=== PATIENT | male | born 1970 | race Caucasian/White ===

== ENCOUNTER → 2018-05-23 15:47 | Outpatient (CLI) | payer OTHER, SELFPAY ==
--- OUTSIDE RECORDS SUMMARY | 2018-07-28 15:32 | XMS RPT_ITS ---
:1970 Author Organization OH[facility] Care Team Providers Name Role Phone Pawan Duval Attending Unavailable Pawan Duval Referring Unavailable Ruddy Duval Primary Care Unavailable PROBLEMS PROBLEMS No Problem Records FoundPROCEDURES PROCEDURES No Procedure Records FoundRESULTS RESULTS Observed: 05/23/2018 Status: F Source: [place] CULTURE, THROAT 9:00 AM [facility] REPOSITORY Culture, Throat #1 Ampicillin can be used for Beta-Lactamase negative isolates. Trimeth/Sulfa, Chloramphenicol, Cefotaxime, Ciprofloxacin, Amoxicillin/Clavulanic Acid,and Oral 2nd/3rd Generation Cephlosporins are effective against both Beta-Lactamase positive and Beta-Lactamase negative isolates. ORGANISM 1: Haemophilus influenzae Amount Growth 3+ Beta Lactamase Negative ORGANISM 2: Mixed Goldie Amount Growth 3+ Performed By: #### [id number] #### [facility] [address] [place], [place], [address] ALLERGIES ALLERGIES No Allergies Records FoundENCOUNTERS ENCOUNTERS ADMIT/DISCHARGE ACCOUNT ADMITTING ENCOUNTER LOCATION SOURCE NUMBER CLASS 05/23/2018 [id number] [facility] ing:LABSPEC Repository PAYERS PAYERS ENCOUNTER GUARANTOR PAYER SUBSCRIBER SOURCE 05/23/2018 JUSTEN Rodriguez [id number] Insurance:Ana NORMANDOB: [facility] icy [place]: [id number] [id number] Repository [address]Gjz: ([phone]) Date:[id number] [phone] () [address], [place] [id number]: 05/23/2018 Secondary NOT GIVENUNK Micheal Insurance:SELF PAY [facility]: Effective Repository Date:2018-05-23
== END ==
PROVIDERS: Family Provider Otolaryngology; PCP Otolaryngology; Referring Provider Otolaryngology Otolaryngology/Facial Plastic Surgery; Visit Provider Otolaryngology Otolaryngology/Facial Plastic Surgery
DX: J02.9 Acute pharyngitis, unspecified (principal)
CPT/HCPCS: 87070; 87077

== ENCOUNTER → 2018-10-12 | Outpatient (CLI) | payer OTHER, SELFPAY ==
[2018-10-12 10:07] LABS: Absolute Lymphocyte Count 1.83 X10^3/ul (0.83-4.51); Absolute Neutrophil Count 3.4 X10^3/uL (2.0-7.7); Basophil# 0.03 X10^3/uL; Basophil% 0.5 % (0-1); Eosinophil# 0.15 X10^3/uL; Eosinophils% 2.5 % (0-5); Hematocrit 42.4 % (40-54); Hemoglobin 14.4 g/dl (13.0-16.5); Lymphocyte # 1.83 X10^3/ul (4.0); Lymphocyte % 30.3 % (19-41); Mean Corpuscular Hgb 29.1 pg (27.0-32.0); Mean Corpuscular Volume 85.8 fL (80-94); Mean Platelet Vol. 9.9 fl (6.2-12.0); Neutrophil # 3.41 X10^3/uL (2.7-7.7); Neutrophil % 56.5 % (47-70); Platelet Count 254 K/mm3 (150-450); RBC Distribution Width CV 12.5 % (11.6-14.6); RBC Distribution Width SD 38.2 fl (35.1-43.9); Red Blood Count 4.94 M/mm3 (4.6-6.2)
[2018-10-12 10:10] LABS: POSITIVE COUNT NO; POSITIVE DIFFERENTIAL NO; POSITIVE MORPHOLOGY NO
[2018-10-12 10:35] LABS: ALB/GLOB Ratio 1.2 RATIO (0.9-2.4); AST(SGOT) 32 U/L (15-37); Alanine Aminotransfer ALT/SGPT 58 U/L (16-61); Albumin, Serum 3.8 g/dL (3.2-5.0); Alkaline Phosphatase 71 U/L (45-117); Anion Gap 4 (5-15); BUN 13 mg/dL (7-18); BUN/Creat Ratio 12.9 RATIO (10-20); Calcium,Total 8.5 mg/dL (8.5-10.1); Chloride 106 mmol/L (98-107); Cholesterol 226 mg/dL (200); Creatinine, Serum 1.01 mg/dL (0.70-1.30); EST Glomerular Filtration Rate 84 mL/min (>60); Est Glom Filt Rate - Afr Amer 101 mL/min (>60); Globulin 3.3 g/dL (2.2-4.2); Glucose 92 mg/dL (74-106); High Density Lipoprotein 44 mg/dL; Potassium 4.1 mmol/L (3.5-5.1); Protein, Total 7.1 g/dL (6.4-8.2); Sodium Level 138 mmol/L (136-145); Triglycerides 226 mg/dL; Very Low Density Lipoprotein 45 mg/dL (5-40)
== END | disposition home or self-care (01) ==
PROVIDERS: Family Provider Family Medicine; PCP Family Medicine; Visit Provider Family Medicine
DX: E78.00 Pure hypercholesterolemia, unspecified (principal); R03.0 Elevated blood-pressure reading, without diagnosis of hypertension
CPT/HCPCS: 36415; 80053; 80061; 85025

== ENCOUNTER → 2019-01-23 | Outpatient (CLI) | payer OTHER, SELFPAY | END | disposition home or self-care (01) | LOC: LABSPEC 15:47 | PROVIDERS: Family Provider Internal Medicine; PCP Internal Medicine; Referring Provider Otolaryngology Otolaryngology/Facial Plastic Surgery; Visit Provider Otolaryngology Otolaryngology/Facial Plastic Surgery | DX: J32.9 Chronic sinusitis, unspecified (principal) | CPT/HCPCS: 87070; 87077; 87186; 87205 ==

== ENCOUNTER 2022-01-18 07:31 | Day surgery (SDC) | payer BC, SELFPAY ==
[2022-01-18] MEDS: Lactated Ringers 1,000 ML 15 ML IV (07:45)
[2022-01-18 07:58] VITALS: BP 133/99; PULSE 98; RESP 18; TEMP 36.6; O2SAT 95; BMI 34.4
--- NOTE | 2022-01-18 08:22 | HP.PCM_ITS ---
HPI - General HPI Narrative JUSTEN NORMAN, is a 51 M who presents for screening colonoscopy. The patient has never had a colonoscopy in the past. He denies any abdominal pain or blood in the stool. He has no family history of colon cancer. [facility] Medical History Gastric reflux GERD (gastroesophageal reflux disease) Hyperlipidemia Non-smoker Phlebitis and thrombophlebitis of peroneal vein, bilateral Seasonal allergies Umbilical hernia Wears glasses Home Medications cetirizine 10 mg tablet (Zyrtec) 10 mg PO DAILY PRN ALLERGIES 12/09/21 [History Last Taken Unknown] esomeprazole magnesium 20 mg capsule,delayed release (Nexium) 20 mg PO DAILY 12/09/21 [History Last Taken Unknown] multivitamin 1 tab PO DAILY 12/09/21 [History Last Taken Unknown] Allergy/AdvReac Type Severity Reaction Status Date / Time animal dander Allergy Other Verified 01/18/22 07:56 Environmental Allergies: Allergy NEEDS Verified 01/18/22 07:56 Uncoded FOLLOW-UP [seasonal] Family History (Updated 12/09/21 @ 12:57 by Asiya Cole) Mother Breast cancer Hypertension Father Cancer of kidney Grandmother Lung cancer Surgical History History of tonsillectomy and adenoidectomy Hx of sinus surgery Social History (Updated 12/09/21 @ 12:58 by Asiya Cole) household members: spouse current occupational status: employed Smoking Status: Never smoker Past Medical/Surgical History Planned Operation Planned Operative Procedure/s: COLONOSCOPY Previous Hospitalizations/Surgeries HX Hospitalizations: No Any Problems With Anesthesia: No You/Your Family Experience Fever (Hyperthermia) With Anes: No Cholinesterase deficiency: No Cardiovascular Hx of Irregular Heartbeat and/or Afib: No Hx Heart Attack: No Hx Congestive Heart Failure: No Hx Hypertension: No Hx Pacemaker: No Respiratory Hx Chronic Obstructive Pulmonary Disease (COPD): No Hx Asthma: No Hx Emphysema: No Hx Sleep Apnea: No Hx Respiratory Tract Infection/Cold (presently): No Do You Snore Loudly (louder than talking or can be heard): No Do You Often Feel Tired/ Fatigued/ Sleepy Dring Daytime?: No Has Anyone Observed You Stop Breathing During Sleep?: No Result (for STOP score): Negative Smoking Status: Never smoker Gastrointestinal Hx Gastroesophageal Reflux: No Hx Ulcer: No Neurological Hx Seizures: No Hx Head/Neck Injury: No Hx Headaches: No Hx Back Injury/Pain: No Does patient have nerve stimulator: No Miscellaneous Recent Exposure to Contagious Disease: No Allergies animal dander Allergy (Verified 01/18/22 07:56) Other Environmental Allergies: Uncoded [seasonal] Allergy (Verified 01/18/22 07:56) NEEDS FOLLOW-UP Discharge Is Pt Admitted From a Fpc, or a Assisted: Yes Who Could Help: After D/C, Where Do you Plan to Go: Return Home Vital Signs Vital Signs Vital Signs: 01/18/22 07:58 01/18/22 07:58 Temperature 97.8 F Temperature Source Temporal Pulse Rate 98 Respiratory Rate 18 Respiratory Pattern Normal Blood Pressure 133/99 H Blood Pressure Mean 110 Blood Pressure Source Monitor Blood Pressure Position Semi-Fowlers Blood Pressure Location Left Arm Pulse Ox 95 Oxygen Delivery Method Room Air Weight Weight: 253 lb 8.505 oz Body Mass Index (BMI) 34.4 Physical Exam Const alert and oriented x3 Resp normal respiratory effort and normal air movement Cardio regular rate and regular rhythm GI soft to palpation, non-tender and non-distended Assessment & Plan Assessment/Plan (1) Encounter for screening for malignant neoplasm of colon: PLAN: I explained endoscopy in detail to the patient. I explained the risks including but not limited to stroke or heart attack with anesthesia, perforation of the GI tract, bleeding, infection. I explained that any of these could necessitate further emergency surgery. The patient understands and all questions were answered sufficiently. The patient wishes to proceed with procedure. Bert Bhakta MD Pager: [facility] [address] [place] [address], [address] [place] [address] Office: Surgery Risks - Colonoscopy Risks Include but are not Limited To: Risks include but are not limited to: Bleeding, perforation requiring further surgery, inability to complete colonoscopy requiring barium enema.
--- NOTE | 2022-01-18 08:30 | COLBX_PTH ---
PATIENT: JUSTEN NORMAN LOC: EN U#:[id number] AGE/SX: 51/M ROOM: RE01/18/[address]: Dr. Bert Bhakta MD : 1970 BED: DIS: 01/18/2022 SPEC #: [id number] RECD: 01/18/22 10:15 STATUS: GARTH CAMRON #: [id number] SUBHA: 01/18/22 08:[address]: Bert Bhakta DEPT: SURGICAL PATHOLOGY RECD BY: Pascale Dorantes ENTERED: 01/18/22 11:44 SP TYPE: COLON BX OTHR DR: Dr. Melva Oropeza MD Tissues: Cecum, NOS Procedures: Surgery Specimen Level IV HEADER OPERATION: Colonoscopy ? open access (MAC), polypectomy PRE-OP DIAGNOSIS: Screening TISSUE SUBMITTED: Cecal polyp MICROSCOPIC DIAGNOSIS Cecal polyp, polypectomy: Fragments of tubular adenoma. SJ:nyasia 01/19/2022 MICROSCOPIC DESCRIPTION Slides are reviewed. GROSS DESCRIPTION Received in fixative is one container labeled with the patient's name and designated cecal polyp. The specimen consists of multiple irregular fragments of light gonzáles soft tissue that in aggregate measure 1.5 x 0.7 x 0.3 cm. The specimen is totally submitted in one cassette. / SJ:rg 01/18/2022 TC:1 CPT: 61700
[2022-01-18 09:00] VITALS: BP 103/69; BP 133/99; PULSE 105; RESP 20; TEMP 36.1; O2SAT 92
--- NOTE | 2022-01-18 09:00 | OP.COLON_ITS ---
Patient Name: Damien Fournier Procedure Date: 01/18/2022 8:21 AM Date of : 1970 Age: 51 Procedure: Colonoscopy Indications: Screening for colorectal malignant neoplasm Providers: Bert Bhakta MD Medicines: Monitored Anesthesia Care Patient Profile: This is a 51 year old male. Refer to note in patient chart for documentation of history and physical. Last Colonoscopy: none. The patient's first colonoscopy is today. Complications: No immediate complications. Procedure: Pre-Anesthesia Assessment: - Prior to the procedure, a History and Physical was performed, and patient medications and allergies were reviewed. The patient's tolerance of previous anesthesia was also reviewed. The risks and benefits of the procedure and the sedation options and risks were discussed with the patient. All questions were answered, and informed consent was obtained. Prior Anticoagulants: The patient has taken no previous anticoagulant or antiplatelet agents. After reviewing the risks and benefits, the patient was deemed in satisfactory condition to undergo the procedure. After I obtained informed consent, the scope was passed under direct vision. Throughout the procedure, the patient's blood pressure, pulse, and oxygen saturations were monitored continuously. The colonoscope was introduced through the anus and advanced to the cecum, identified by the appendiceal orifice, ileocecal valve and palpation. The colonoscopy was performed without difficulty. The patient tolerated the procedure well. The quality of the bowel preparation was good. Scope In: 8:31:28 AM Scope Withdrawal Time 0 hours 13 minutes 38 seconds Scope Out: 8:54:28 AM Total Procedure Duration Time 0 hours 23 minutes 0 seconds Findings: A medium polyp was found in the ileocecal valve. The polyp was sessile. The polyp was removed with a piecemeal technique using a hot snare. Resection and retrieval were complete. To prevent bleeding post-intervention, one hemostatic clip was successfully placed. There was no bleeding at the end of the procedure. The exam was otherwise without abnormality on direct and retroflexion views. Impression: - One medium polyp at the ileocecal valve, removed piecemeal using a hot snare. Resected and retrieved. - The examination was otherwise normal on direct and retroflexion views. Recommendation: - Discharge patient to home. - Resume previous diet. - Continue present medications. - Await pathology results. - Repeat colonoscopy in 1 year for surveillance. Procedure Code(s): --- Professional --- 43208, 33, Colonoscopy, flexible; with removal of tumor(s), polyp(s), or other lesion(s) by snare technique Diagnosis Code(s): --- Professional --- Z12.11, Encounter for screening for malignant neoplasm of colon D12.0, Benign neoplasm of cecum CPT copyright 2017 [employer]. All rights reserved. The codes documented in this report are preliminary and upon diesel locomotive engineer review may be revised to meet current compliance requirements. Bert Bhakta MD 01/18/2022 9:00:35 AM This report has been signed electronically. Number of Addenda: 0 Note Initiated On: 01/18/2022 8:21 AM
--- NOTE | 2022-01-18 09:01 | OP.CCLET_ITS ---
01/18/2022 Melva Oropeza [place] [id number] [address] Re : Colonoscopy procedure for Damien Fournier Dear Dr. Oropeza This procedure was performed on Tuesday, January 18, 2022. My impressions and recommendations are as follows: Impressions : - One medium polyp at the ileocecal valve, removed piecemeal using a hot snare. Resected and retrieved. - The examination was otherwise normal on direct and retroflexion views. Recommendations : - Discharge patient to home. - Resume previous diet. - Continue present medications. - Await pathology results. - Repeat colonoscopy in 1 year for surveillance. My findings are described in the full procedure note, which is enclosed. If I can be of further assistance, please feel free to contact me at Doctor phone number(s): , Work: . Sincerely, Bert Bhakta MD 01/18/2022 9:00:35 AM This report has been signed electronically.
[2022-01-18 09:05] VITALS: BP 119/93; BP 133/99; PULSE 100; RESP 16; O2SAT 96
[2022-01-18 09:10] VITALS: BP 120/78; BP 133/99; PULSE 101; RESP 16; O2SAT 97
[2022-01-18 09:15] VITALS: BP 117/91; BP 133/99; PULSE 95; RESP 16; TEMP 36.7; O2SAT 96
[2022-01-18 09:30] VITALS: BP 133/99
== END 2022-01-18 09:55 | disposition home or self-care (01) ==
LOC: EN 07:35 → AC 07:35
PROVIDERS: PCP Family Medicine; Referring Provider Family Medicine; Visit Provider Surgery
PROC: 0DJD8ZZ Inspection of Lower Intestinal Tract, Via Natural or Artificial Opening Endoscopic (ICD-10-PCS; CPT 45378; principal; 2022-01-18 08:25)
DX: Z12.11 Encounter for screening for malignant neoplasm of colon (principal); D12.0 Benign neoplasm of cecum; K21.9 Gastro-esophageal reflux disease without esophagitis; Z79.899 Other long term (current) drug therapy
CPT/HCPCS: 45385; 88305; J7120; J2405

== ENCOUNTER → 2025-03-18 | Outpatient (CLI) | payer OTHER, SELFPAY | END | disposition home or self-care (01) | LOC: LABSPEC 12:47 | PROVIDERS: PCP Family Medicine; Referring Provider Otolaryngology Otolaryngology/Facial Plastic Surgery; Visit Provider Otolaryngology Otolaryngology/Facial Plastic Surgery | DX: J02.9 Acute pharyngitis, unspecified (principal) | CPT/HCPCS: 87070 ==